=== PATIENT | female | born 1960 | race Caucasian/White ===

== ENCOUNTER 2022-07-14 12:38 | Emergency (ER) | payer BC, SELFPAY ==
--- NOTE | ~2022-07-14 | XR_ITS ---
Lateral and Silva views of the left calcaneus CLINICAL HISTORY: Posterior heel pain FINDINGS: No fracture or dislocation seen. Joint spaces are preserved. Plantar calcaneal spur present . There is enthesopathic change at the Achilles tendon insertion. IMPRESSION: No fracture or dislocation. Plantar calcaneal spur. Enthesopathic change at the Achilles tendon insertion. Reviewed, dictated and finalized at location .
[2022-07-14 12:46] VITALS: BP 152/63; PULSE 101; RESP 18; TEMP 37; O2SAT 97
--- NOTE | 2022-07-14 13:27 | ED.LOWEXIN ---
HPI - Extremity Injury (Lower) General Chief Complaint: Extremity Injury, Lower Stated Complaint: Left Foot Pain Time Seen by Provider: 07/14/22 13:27 Source: patient, RN notes reviewed and old records reviewed Mode of arrival: ambulatory Limitations: no limitations History of Present Illness HPI Narrative: 62 year old female who presents to [facility] care with complaints of left heel pain which started last evening with increased pain this morning and some swelling noted to heel area.Patient reports no known injury to her foot or heel area, states she is on her feet a lot at work. Patient states that when she first got out of bed and applied pressure to her foot pain increased. Patient reports that she does see [facility] specialist for heel nails since she is diabetic. MD complaint: other (posterior and plantar heel pain) Onset (ago): day(s) (last night) Type of Injury: other (no injury) Treatments prior to arrival: NSAIDS Related Data Home Medications Medication Instructions Recorded Confirmed alicia Hook 1 bill. 1 tablet PO DAILY 07/14/22 07/14/22 cell-inulin 1 gram-vit C 15 mg chew tablet (Culturelle Probiotic-Prebiotic) aspirin 81 mg chewable tablet 81 mg PO DAILY 07/14/22 07/14/22 azithromycin 250 mg tablet 250 mg PO DAILY 07/14/22 07/14/22 cholecalciferol (vitamin D3) 75 75 mcg PO DAILY 07/14/22 07/14/22 mcg (3,000 unit) tablet empagliflozin 25 mg tablet 25 mg PO DAILY 07/14/22 07/14/22 (Jardiance) esomeprazole magnesium 20 mg 20 mg PO DAILY 07/14/22 07/14/22 capsule,delayed release (Nexium) ferrous sulfate 324 mg (65 mg 324 mg PO DAILY 07/14/22 07/14/22 iron) tablet,delayed release glimepiride 4 mg tablet 4 mg PO BID 07/14/22 07/14/22 lisinopril 20 mg tablet 20 mg PO DAILY 07/14/22 07/14/22 metformin 500 mg tablet 500 mg PO TIDWMEAL 07/14/22 07/14/22 pioglitazone 30 mg tablet 30 mg PO DAILY 07/14/22 07/14/22 simvastatin 20 mg tablet 20 mg PO DAILY 07/14/22 07/14/22 sitagliptin phosphate 100 mg 100 mg PO DAILY 07/14/22 07/14/22 tablet (Januvia) Allergies Allergy/AdvReac Type Severity Reaction Status Date / Time codeine AdvReac Intermediate Nausea and Verified 07/14/22 12:54 Vomiting Review of Systems Review of Systems: CONSTITUTIONAL: Denies fever, chills, or sweats. EYES: Denies visual changes, redness, or discharge. ENT: Denies rhinorrhea, congestion, sore throat, or otalgia. CARDIOVASCULAR: Denies chest pain, palpitations, or edema. RESPIRATORY: Denies cough or dyspnea. GASTROINTESTINAL: Denies abdominal pain, nausea, vomiting, or diarrhea. GENITOURINARY: Denies dysuria or hematuria. SKIN: Denies rash or itching. MUSCULOSKELETAL: Denies back pain,positive for posterior and plantar heel pain, or myalgia. NEUROLOGIC: Denies headache, numbness, or weakness. PSYCHIATRIC: Denies anxiety or depression. All systems reviewed & are unremarkable except as noted in HPI and below PMFSH Past Medical History Medical History (Updated 07/16/22 @ 10:26 by Ebony Smith NP) Anemia Arthritis Diabetes Elevated cholesterol GERD (gastroesophageal reflux disease) Heart murmur Hypertension Surgical History Surgical History (Updated 07/16/22 @ 10:24 by Ebony Smith NP) History of tonsillectomy and adenoidectomy Social History Social History (Updated 07/16/22 @ 10:24 by Ebony Smith NP) Smoking status: Never smoker Alcohol intake: unknown Substance use type: does not use Living arrangements: with family Gender identity (if verbalized by the patient): Female Comments At time of signature, agree with nursing past medical, surgical, social and family history. There is no relevant family history pertinent to the presenting complaint Exam Narrative: GENERAL: Well-appearing, well-nourished, and in no acute distress. HEAD: Normocephalic, atraumatic. EYES: PERRLA and EOMI. ENT: Nares clear, no rhinorrhea or epistaxis. Mucous membranes moist.TM's normal with good light r
== END 2022-07-14 13:50 | disposition home or self-care (01) ==
PROVIDERS: Emergency Provider Registered Nurse; PCP Family Medicine
DX: M72.2 Plantar fascial fibromatosis (principal); M77.32 Calcaneal spur, left foot; I10 Essential (primary) hypertension; E11.9 Type 2 diabetes mellitus without complications; Z79.84 Long term (current) use of oral hypoglycemic drugs; Z79.82 Long term (current) use of aspirin
CPT/HCPCS: 73650; 99213; G0463

== ENCOUNTER 2022-08-30 19:09 | Emergency (ER) | payer BC, SELFPAY ==
--- NOTE | ~2022-08-30 | XR_ITS ---
EXAMINATION: XR ribs RT 2V Exam Date/Time: 08/30/2022 19:22 CDT HISTORY: FALL,ANT/LAT PAIN Comparison: None available. RESULT: Lines, tubes, and devices: Cholecystectomy clips. Lungs and pleura: Senescent changes, otherwise clear. Cardiothymic silhouette: Unremarkable. Other: No acute upper abdominal finding. Nondisplaced fractures of the right anterior seventh and ei ghth ribs. IMPRESSION: Nondisplaced right anterior seventh and eighth rib fractures. Reviewed, dictated and finalized at location K.
--- NOTE | 2022-08-30 19:13 | ED.FALL ---
HPI - Fall General Chief Complaint: Fall Stated Complaint: Right side pain from fall Time Seen by Provider: 08/30/22 19:43 Mode of arrival: ambulatory Limitations: no limitations History of Present Illness HPI Narrative: 62-year-old female presents with concern for anterior rib pain. Reports she fell 1 week ago, all of her injuries are improving and healing but she continues to have rib pain. She reports the pain is worse with walking, coughing, deep breathing, rolling over in bed. Reports she has been taking ibuprofen and Tylenol twice daily which does help with the pain. She denies shortness of breath. MD complaint: fall Related Data Home Medications Medication Instructions Recorded Confirmed B.coagulan,subtilis 1 bill. 1 tablet PO DAILY 07/14/22 07/14/22 cell-inulin 1 gram-vit C 15 mg chew tablet (Culturelle Probiotic-Prebiotic) aspirin 81 mg chewable tablet 81 mg PO DAILY 07/14/22 07/14/22 cholecalciferol (vitamin D3) 75 75 mcg PO DAILY 07/14/22 07/14/22 mcg (3,000 unit) tablet empagliflozin 25 mg tablet 25 mg PO DAILY 07/14/22 07/14/22 (Jardiance) esomeprazole magnesium 20 mg 20 mg PO DAILY 07/14/22 07/14/22 capsule,delayed release (Nexium) ferrous sulfate 324 mg (65 mg 324 mg PO DAILY 07/14/22 07/14/22 iron) tablet,delayed release glimepiride 4 mg tablet 4 mg PO BID 07/14/22 07/14/22 lisinopril 20 mg tablet 20 mg PO DAILY 07/14/22 07/14/22 metformin 500 mg tablet 500 mg PO TIDWMEAL 07/14/22 07/14/22 pioglitazone 30 mg tablet 30 mg PO DAILY 07/14/22 07/14/22 simvastatin 20 mg tablet 20 mg PO DAILY 07/14/22 07/14/22 sitagliptin phosphate 100 mg 100 mg PO DAILY 07/14/22 07/14/22 tablet (Januvia) Allergies Allergy/AdvReac Type Severity Reaction Status Date / Time codeine AdvReac Intermediate Nausea and Verified 08/30/22 19:43 Vomiting Review of Systems Review of Systems: CONSTITUTIONAL: Denies malaise, chills, sweats, or fever. CARDIOVASCULAR: Denies chest pain, palpitations, or edema. RESPIRATORY: Denies cough or dyspnea. GASTROINTESTINAL: Denies abdominal pain SKIN: Denies open skin MUSCULOSKELETAL: Reports right anterior rib pain NEUROLOGIC: Denies numbness, weakness All systems reviewed & are unremarkable except as noted in HPI and below PMFSH Past Medical History Medical History (Updated 08/30/22 @ 19:50 by Neeta Tyler NP) Anemia Arthritis Diabetes Elevated cholesterol GERD (gastroesophageal reflux disease) Heart murmur Hypertension Surgical History Surgical History (Updated 07/16/22 @ 10:24 by Ebony Smith NP) History of tonsillectomy and adenoidectomy Social History Social History (Updated 07/16/22 @ 10:24 by Ebony Smith NP) Smoking status: Never smoker Alcohol intake: unknown Substance use type: does not use Living arrangements: with family Gender identity (if verbalized by the patient): Female Comments At time of signature, agree with nursing past medical, surgical, social and family history. There is no relevant family history pertinent to the presenting complaint Exam Narrative: GENERAL: Well-appearing, well-nourished, and in no acute distress. HEAD: Normocephalic, atraumatic. EYES: PERRLA, sclera clear, and EOMI. No nystagmus. ENT: Nares clear. Mucous membranes moist. NECK: Supple. CHEST: No respiratory distress. Clear to auscultation. No bony deformities, no asymmetry. Speaks in full sentences. Anterior rib tenderness HEART: Regular rate and rhythm. No murmur heard. SKIN: Warm, dry, no visible rash. NEURO: Alert and oriented x3. No focal deficits. Cranial nerves II through XII grossly intact PSYCH: Normal mood and affect Course Course Emergency Course: Patient is aware of diagnosis, understands and agrees to treatment plan. Anticipatory guidance given. Patient agrees to follow-up as directed and is aware of reasons to seek care at the emergency department. Portions of this record may have been c
[2022-08-30 19:20] VITALS: BP 128/70; PULSE 79; RESP 18; TEMP 37.1; O2SAT 97
== END 2022-08-30 19:54 | disposition home or self-care (01) ==
PROVIDERS: Emergency Provider Nurse Practitioner; PCP Family Medicine
DX: S22.41XA Multiple fractures of ribs, right side, initial encounter for closed fracture (principal); W19.XXXA Unspecified fall, initial encounter; M19.90 Unspecified osteoarthritis, unspecified site; E11.9 Type 2 diabetes mellitus without complications; E78.00 Pure hypercholesterolemia, unspecified; K21.9 Gastro-esophageal reflux disease without esophagitis; R01.1 Cardiac murmur, unspecified; I10 Essential (primary) hypertension; D64.9 Anemia, unspecified; Z79.82 Long term (current) use of aspirin
CPT/HCPCS: 71100; 99213; G0463

== ENCOUNTER 2022-12-31 15:37 | Emergency (ER) | payer BC, SELFPAY ==
[2022-12-31 15:43] VITALS: BP 134/79; PULSE 87; RESP 16; TEMP 37.1; O2SAT 97
--- NOTE | 2022-12-31 15:52 | ED.URI ---
HPI - URI/Sore Throat General Chief Complaint: Upper Respiratory Infection Stated Complaint: cough/ throat History of Present Illness HPI Narrative: Patient presents with a cough productive at times. No shortness of breath no chest pain. Related Data Home Medications Medication Instructions Recorded Confirmed alicia Hook 1 bill. 1 tablet PO DAILY 07/14/22 12/31/22 cell-inulin 1 gram-vit C 15 mg chew tablet (Culturelle Probiotic-Prebiotic) aspirin 81 mg chewable tablet 81 mg PO DAILY 07/14/22 12/31/22 cholecalciferol (vitamin D3) 75 75 mcg PO DAILY 07/14/22 12/31/22 mcg (3,000 unit) tablet empagliflozin 25 mg tablet 25 mg PO DAILY 07/14/22 12/31/22 (Jardiance) esomeprazole magnesium 20 mg 20 mg PO DAILY 07/14/22 12/31/22 capsule,delayed release (Nexium) ferrous sulfate 324 mg (65 mg 324 mg PO DAILY 07/14/22 12/31/22 iron) tablet,delayed release glimepiride 4 mg tablet 4 mg PO BID 07/14/22 12/31/22 lisinopril 20 mg tablet 20 mg PO DAILY 07/14/22 12/31/22 metformin 500 mg tablet 500 mg PO TIDWMEAL 07/14/22 12/31/22 pioglitazone 30 mg tablet 30 mg PO DAILY 07/14/22 12/31/22 simvastatin 20 mg tablet 20 mg PO DAILY 07/14/22 12/31/22 sitagliptin phosphate 100 mg 100 mg PO DAILY 07/14/22 12/31/22 tablet (Januvia) Allergies Allergy/AdvReac Type Severity Reaction Status Date / Time codeine AdvReac Intermediate Nausea and Verified 12/31/22 15:46 Vomiting Review of Systems Review of Systems: CONSTITUTIONAL: Denies fever, chills, or sweats. EYES: Denies visual changes, redness, or discharge. ENT: Denies rhinorrhea, congestion, sore throat, or otalgia. CARDIOVASCULAR: Denies chest pain, palpitations, or edema. RESPIRATORY: Denies cough or dyspnea. GASTROINTESTINAL: Denies abdominal pain, nausea, vomiting, or diarrhea. GENITOURINARY: Denies dysuria or hematuria. SKIN: Denies rash or itching. MUSCULOSKELETAL: Denies back pain, joint pain, or myalgia. NEUROLOGIC: Denies headache, numbness, or weakness. PSYCHIATRIC: Denies anxiety or depression. [facility] Past Medical History Medical History (Updated 12/31/22 @ 16:10 by BOBBY Luu) Anemia Arthritis Diabetes Elevated cholesterol GERD (gastroesophageal reflux disease) Heart murmur Hypertension Surgical History Surgical History (Updated 07/16/22 @ 10:24 by Ebony Smith NP) History of tonsillectomy and adenoidectomy Social History Social History (Updated 07/16/22 @ 10:24 by Ebony Smith NP) Smoking status: Never smoker Alcohol intake: unknown Substance use type: does not use Living arrangements: with family Gender identity (if verbalized by the patient): Female Comments At time of signature, agree with nursing past medical, surgical, social and family history. There is no relevant family history pertinent to the presenting complaint Exam Narrative: GENERAL: Well-appearing, well-nourished, and in no acute distress. HEAD: Normocephalic, atraumatic. EYES: PERRLA and EOMI. ENT: Nares clear, no rhinorrhea or epistaxis. Mucous membranes moist. NECK: Supple. CHEST: Clear to auscultation. No respiratory distress. Rhonchi right lower lung base no respiratory distress HEART: Regular rate and rhythm. No murmur heard. Normal peripheral pulses. ABDOMEN: Soft, nontender, nondistended, normal active bowel sounds. EXTREMITIES: Normal range of motion. No edema. SKIN: Warm, dry, no rash. NEURO: No focal deficits. Alert and oriented x3. Anat Coma Scale Eye Opening: Spontaneous 4 M[place] Coma Scale Motor: Obeys Commands 6 Mck[place] Coma Scale Verbal: Oriented 5 Mckin[place] Coma Scale Total 15 Course Course Level of Care: Express Care Visit Vital Signs Vital signs: Vital Signs Temperature 37.1 C 12/31/22 15:43 Pulse Rate 87 12/31/22 15:43 Respiratory Rate 16 12/31/22 15:43 Blood Pressure 134/79 12/31/22 15:43 Pulse Oximetry 97 12/31/22 15:43 Oxygen Delivery Room Air 12/31/22
== END 2022-12-31 16:00 | disposition home or self-care (01) ==
PROVIDERS: Emergency Provider Nurse Practitioner Family; PCP Family Medicine
DX: J06.9 Acute upper respiratory infection, unspecified (principal); J40 Bronchitis, not specified as acute or chronic; E11.9 Type 2 diabetes mellitus without complications; I10 Essential (primary) hypertension; Z79.899 Other long term (current) drug therapy
CPT/HCPCS: 99213; G0463

== ENCOUNTER 2023-06-18 08:27 | Emergency (ER) | payer BC, SELFPAY ==
[2023-06-18 08:40] VITALS: BP 135/60; PULSE 84; RESP 16; TEMP 37; O2SAT 98
--- NOTE | 2023-06-18 09:01 | ED.EYEPROB ---
HPI - Eye Problem General Chief complaint: Eye Problems Stated complaint: eyes Time Seen by Provider: 06/18/23 09:01 Source: patient, RN notes reviewed and old records reviewed Mode of arrival: ambulatory Limitations: no limitations History of Present Illness HPI Narrative: 62 year old female accompanied by with complaints of bilateral eyes itching and burning last night with eyes crusted shut this morning. Patient reports that she has noted some yellowish mucous from her eyes today. Patient denies any sharp pain to her eyes or any visual changes. She has been using Visine to her eyes. MD chief complaint: eye redness and other (drainage.) Onset (ago): day(s) (since last night) Location: both eyes Eye Symptoms: burning, redness, itching and discharge Severity scale (1-10): 3 Treatments Prior to Arrival: OTC eye drops Related Data Home Medications Medication Instructions Recorded Confirmed alicia Hook 1 bill. 1 tablet PO DAILY 07/14/22 12/31/22 cell-inulin 1 gram-vit C 15 mg chew tablet (Culturelle Probiotic-Prebiotic) aspirin 81 mg chewable tablet 81 mg PO DAILY 07/14/22 12/31/22 cholecalciferol (vitamin D3) 75 75 mcg PO DAILY 07/14/22 12/31/22 mcg (3,000 unit) tablet empagliflozin 25 mg tablet 25 mg PO DAILY 07/14/22 12/31/22 (Jardiance) esomeprazole magnesium 20 mg 20 mg PO DAILY 07/14/22 12/31/22 capsule,delayed release (Nexium) ferrous sulfate 324 mg (65 mg 324 mg PO DAILY 07/14/22 12/31/22 iron) tablet,delayed release glimepiride 4 mg tablet 4 mg PO BID 07/14/22 12/31/22 lisinopril 20 mg tablet 20 mg PO DAILY 07/14/22 12/31/22 metformin 500 mg tablet 500 mg PO TIDWMEAL 07/14/22 12/31/22 pioglitazone 30 mg tablet 30 mg PO DAILY 07/14/22 12/31/22 simvastatin 20 mg tablet 20 mg PO DAILY 07/14/22 12/31/22 sitagliptin phosphate 100 mg 100 mg PO DAILY 07/14/22 12/31/22 tablet (Januvia) Allergies Allergy/AdvReac Type Severity Reaction Status Date / Time codeine AdvReac Intermediate Nausea and Verified 12/31/22 15:46 Vomiting Review of Systems Review of Systems: CONSTITUTIONAL: Denies fever, chills, or sweats. EYES: Denies visual changes. Reports redness,, irritation, discharge bilateral eyes with itching and burning sensation ENT: Denies rhinorrhea, congestion, sore throat, or otalgia. CARDIOVASCULAR: Denies chest pain, palpitations, or edema. RESPIRATORY: Denies cough or dyspnea. SKIN: Denies rash or itching. NEUROLOGIC: Denies headache All systems reviewed & are unremarkable except as noted in HPI and below PMFSH Past Medical History Medical History Anemia Arthritis Diabetes Elevated cholesterol GERD (gastroesophageal reflux disease) Heart murmur Hypertension Surgical History Surgical History History of tonsillectomy and adenoidectomy Social History Social History Smoking status: Never smoker Alcohol intake: unknown Substance use type: does not use Living arrangements: with family Gender identity (if verbalized by the patient): Female Comments At time of signature, agree with nursing past medical, surgical, social and family history. There is no relevant family history pertinent to the presenting complaint Exam Narrative: GENERAL: Well-appearing, well-nourished, and in no acute distress. HEAD: Normocephalic, atraumatic. EYES: PERRLA and EOMI. Upper and lower eyelids unremarkable. No periorbital cellulitis noted. Sclera and conjunctivae injected bilateral eyes with yellowish mucoid drainage. ENT: Nares clear, no rhinorrhea or epistaxis. Mucous membranes moist. NECK: Supple. no lymphadenopathy CHEST: Clear to auscultation. No respiratory distress.SAO2 98% on room air HEART: Regular rate and rhythm. No murmur heard. Normal peripheral pulses. SKIN: Warm, dry, no rash. NEURO: No fo
== END 2023-06-18 09:20 | disposition home or self-care (01) ==
PROVIDERS: Emergency Provider Registered Nurse; PCP Internal Medicine
DX: H10.9 Unspecified conjunctivitis (principal); M19.90 Unspecified osteoarthritis, unspecified site; Z79.84 Long term (current) use of oral hypoglycemic drugs; E11.9 Type 2 diabetes mellitus without complications; E78.00 Pure hypercholesterolemia, unspecified; K21.9 Gastro-esophageal reflux disease without esophagitis; R01.1 Cardiac murmur, unspecified; I10 Essential (primary) hypertension; Z79.82 Long term (current) use of aspirin
CPT/HCPCS: 99213; G0463